=== PATIENT | female | born 1970 | race Caucasian/White ===

== ENCOUNTER 2018-05-05 03:21 | Emergency (ER) | payer MEDICAID ==
[~2018-05-05] VITALS: Ht 162.6 cm; Wt 86.6 kg
[2018-05-05 03:30] VITALS: Ht 162.6 cm; Wt 86.6 kg
[2018-05-05 04:23] LABS: BASOPHIL % 0.3 % (0-2); PLATELET COUNT 291 x10^3mcL (130-400)
[2018-05-05 04:26] LABS: RED CELL DISTRIBUTION WIDTH 19.7 % (11.5-14.5)
[2018-05-05 04:33] LABS: CALCIUM 8.5 mg/dL (8.5-10.1); CHLORIDE SERUM 107 mmol/L (98-107); CREATININE SERUM 0.7 mg/dL (0.6-1.0); GFR1 > 60 mL/min; GLUCOSE SERUM 118 mg/dL (74-106); POTASSIUM SERUM 4.1 mmol/L (3.5-5.1); SODIUM SERUM 142 mmol/L (136-145)
[2018-05-05 04:37] LABS: ALKALINE PHOSPHATASE 81 U/L (46-116); ALT/SGPT 25 U/L (14-59); AST/SGOT 20 U/L (15-37); BILIRUBIN TOTAL 0.2 mg/dL (0.20-1.00); TOTAL PROTEIN, SERUM 6.9 g/dL (6.4-8.2)
[2018-05-05 05:48] VITALS: BP 158/81
== END 2018-05-05 05:48 | disposition home or self-care (01) ==
LOC: ED 03:21
PROVIDERS: Emergency Medicine
DX: R42 Dizziness and giddiness (principal); R11.2 Nausea with vomiting, unspecified
CPT/HCPCS: 36415; J8597; Q0162